=== PATIENT | male | born 1960 | race Caucasian/White ===

== ENCOUNTER 2016-09-14 20:38 | Emergency (ER) | payer SELFPAY ==
[~2016-09-14] VITALS: Ht 172.7 cm; Wt 82.6 kg
[~2016-09-14 20:38] MED LIST: FLUO20CA16 PO
[2016-09-14] MEDS ORDERED: PEG 3350/NA SULF,BICARB,CL/KCL 4,000 ML SOLUTION. PO ONE (21:45)
[2016-09-15] VITALS: BP 139/93
--- NOTE | 2016-09-15 00:31 | PHYS DOC ---
Past Medical History Past Medical History: Anxiety, Bipolar, Depression Past Surgical History: Other Additional Past Surgical Histo: right leg age 8 Alcohol Use: Heavy Drug Use: Methamphetamine Adult General Chief Complaint Chief Complaint: FOREIGN BODY HPI HPI 55-year-old male presenting the emergency department today after placing methamphetamines in his rectum in a Ziploc bag. This occurred approximately 9 AM this morning. He denies any nausea vomiting fevers chills or chest pain. Onset 9 AM. Location rectum Duration constant. No alleviating factors present. ROS negative for chest pain shortness of breath nausea vomiting fevers chills headache.All other review of systems is negative unless otherwise noted in history of present illness. Review of Systems Review of Systems See above. Current Medications Current Medications Current Medications Medications (Trade) Dose Ordered Sig/Riya Start Time Stop Time Status Last Admin Dose Admin Sodium Cl/Sod Bicarb/Potass Cl/ PEG (Golytely) 4,000 ml 1X ONCE 09/14/16 21:45 09/14/16 21:46 DC 09/14/16 21:56 4,000 ML Allergies Allergies Allergies Coded Allergies Type Severity Reaction Last Updated Verified No Known Drug Allergies 02/04/16 No Physical Exam Physical Exam Constitutional: Well developed, well nourished, no acute distress, non-toxic appearance. HENT: Normocephalic, atraumatic, bilateral external ears normal, oropharynx moist, no oral exudates, nose normal. [] Eyes: PERRLA, EOMI, conjunctiva normal, no discharge. Neck: Normal range of motion, no tenderness, supple, no stridor. [] Cardiovascular:Heart rate regular rhythm, no murmur Lungs & Thorax: Bilateral breath sounds clear to auscultation [] Abdomen: Bowel sounds normal, soft, no tenderness, no masses, no pulsatile masses. Skin: Warm, dry, no erythema, no rash. [] Back: No tenderness, no CVA tenderness. [] Extremities: No tenderness, no cyanosis, no clubbing, ROM intact, no edema. Neurologic: Alert and oriented X 3, normal motor function, normal sensory function, no focal deficits noted. [] Psychologic: Affect normal, judgement normal, mood normal. Current Patient Data Vital Signs Vital Signs Date Time Temp Pulse Resp B/P Pulse Ox O2 Delivery O2 Flow Rate FiO2 09/15/16 00:00 68 25 139/93 98 Room Air 09/14/16 20:50 98.3 98.3 EKG EKG [] Radiology/Procedures Radiology/Procedures [] Course & Med Decision Making Course & Med Decision Making Pertinent Labs and Imaging studies reviewed. (See chart for details) 55-year-old male presenting to the emergency department today after placing meth in his rectum. Vital signs were remarkable for hypertension. Otherwise unremarkable. Patient was asymptomatic. Physical exam unremarkable. X-rays were obtained which showed no acute abnormalities. Probable meth rock present on x- ray in the rectum. The patient was given GoLYTELY in the emergency department and was able to evacuate his bowels. Methamphetamines was obtained prior nursing staff and security and disposed of appropriately. Patient was subsequent discharged home to follow up with PCP over the next 2-3 days. Dragon Disclaimer Dragon Disclaimer This electronic medical record was generated, in whole or in part, using a voice recognition dictation system. Departure Departure Impression: Primary Impression: Foreign body anus/rectum Disposition: HOME, SELF-CARE Condition: STABLE Referrals: UNKNOWN PCP NAME (PCP) SHMUEL WALKER MD Patient Instructions: Substance Abuse-Brief Additional Instructions: Thank you for allowing us to participate in your care today. Followup with your primary care physician in 3 days if your symptoms do not improve. If you do not have a primary care provider you can ask for a list of our primary care providers. Return to the emergency department you have any new or concerning findings. This should be evaluated by the primary care physician and any necessary consulting services for continued management within a few days after discharge. Return to emergency room if you have any new or concerning symptoms including but not limited to fever, chills, nausea, vomiting, intractable pain, any new rashes, chest pain, shortness of air, uncontrolled bleeding, difficulty breathing, and/or vision loss. GABRIEL CORTES MD Sep 15, 2016 00:31
--- NOTE | 2016-09-15 08:00 | RAD ---
Pelvis, single view, 09/14/2016: History: Rectal foreign body No radiopaque foreign body is identified. The abdominal gas pattern is unremarkable. Minimal vascular calcifications are present. The bony structures show no abnormality. IMPRESSION: No significant abnormality is detected.
--- NOTE | 2016-09-15 08:01 | RAD ---
Abdomen series with chest, 3 views, 09/14/2016: History: Possible foreign body Gas is present in large and small bowel in a nonspecific pattern. No free air seen in the abdomen. There is no evidence of organomegaly. Several pelvic radiopacities are compatible with vascular calcifications. No radiopaque foreign body is evident. The heart size is normal. The lungs are clear. There is no evidence of pleural fluid. IMPRESSION: No acute abdominal abnormality is detected.
== END 2016-09-15 00:45 | disposition home or self-care (01) ==
LOC: ER 20:38
DX: T18.5XXA Foreign body in anus and rectum, initial encounter (principal); F41.9 Anxiety disorder, unspecified; F31.9 Bipolar disorder, unspecified; F15.10 Other stimulant abuse, uncomplicated; X58.XXXA Exposure to other specified factors, initial encounter; Y93.89 Activity, other specified; Y92.89 Other specified places as the place of occurrence of the external cause; Y99.8 Other external cause status
CPT/HCPCS: 72170; 74022; 99284